=== PATIENT | female | born 1995 | race Caucasian/White ===

== ENCOUNTER 2016-07-16 00:40 | Emergency (ER) | payer OTHER ==
[2016-07-16 03:06] VITALS: BP 114/74
== END 2016-07-16 03:06 | disposition home or self-care (01) ==
LOC: ED 00:40
DX: T78.40XA Allergy, unspecified, initial encounter (principal); F32.9 Major depressive disorder, single episode, unspecified; X58.XXXA Exposure to other specified factors, initial encounter
CPT/HCPCS: J0171; J7512; Q0163

== ENCOUNTER 2017-07-15 08:27 | Emergency (ER) | payer OTHER ==
[~2017-07-15] VITALS: Ht 157.5 cm; Wt 68.5 kg
[2017-07-15 08:35] VITALS: Ht 157.5 cm; Wt 68.5 kg
[2017-07-15 09:58] VITALS: BP 108/47
== END 2017-07-15 09:58 | disposition home or self-care (01) ==
LOC: ED 08:27
DX: L23.2 Allergic contact dermatitis due to cosmetics (principal); J45.909 Unspecified asthma, uncomplicated; F32.9 Major depressive disorder, single episode, unspecified

== ENCOUNTER 2017-11-01 21:06 | Emergency (ER) | payer OTHER ==
[~2017-11-01] VITALS: Ht 157.5 cm; Wt 72.1 kg
[2017-11-01 21:17] VITALS: Ht 157.5 cm; Wt 72.1 kg
[2017-11-02 00:07] VITALS: BP 109/70
== END 2017-11-02 00:23 | disposition home or self-care (01) ==
LOC: ED 21:06
DX: J31.0 Chronic rhinitis (principal); R51 Headache; J45.909 Unspecified asthma, uncomplicated
CPT/HCPCS: J1100; J1885; J2270; J2765; J7030